=== PATIENT | female | born 1975 | race Caucasian/White ===

== ENCOUNTER 2022-11-08 08:06 | Emergency (ER) | payer MEDICAID, OTHER ==
[2022-11-08 08:16] VITALS: BP 120/74
[2022-11-08 08:59] LABS: Urine Bacteria NONE SEEN /hpf (None Seen); Urine Blood 2+ /uL (Negative); Urine Mucus FEW (None Seen); Urine Specific Gravity 1.029 (1.001-1.035); Urine WBC 2 /hpf (0 - 5)
[2022-11-08 09:27] LABS: Basophils # (auto) 0 10 ^3/uL (0-0.2); Basophils % (auto) 0.2 % (0.0-2.0); Eosinophils # (auto) 0 10 ^3/uL (0-0.8); Hemoglobin 15.6 g/dL (12.2-16.2); Monocytes # (auto) 0.6 10 ^3/uL (0-1.3); White Blood Cell 9.2 10^3/uL (4.4-10.8)
[2022-11-08 09:35] LABS: Eosinophils % (auto) 0.5 % (0.0-7.0); Hematocrit 45.5 % (36.0-46.0); Lymphocytes # (auto) 1.2 10 ^3/uL (0.4-5.4); Lymphocytes % (auto) 13.3 % (10.0-50.0); Mean Corpuscular Hemoglobin 33.5 pg (28.0-32.0); Mean Corpuscular Hgb Conc. 34.2 g/dL (32.0-36.0); Mean Corpuscular Volume 97.8 fL (80.0-100.0); Monocytes % (auto) 6.4 % (0.0-12.0); Neutrophils # (auto) 7.4 10 ^3/uL (1.6-8.6); Neutrophils % (auto) 79.6 % (37.0-80.0); Nucleated Red Blood Cells % 0.1 %; Red Blood Cells 4.66 10^6/uL (4.0-5.20); Red Cell Distribution Width 13.6 % (11.8-14.3)
[2022-11-08 09:53] LABS: BUN/Creatinine Ratio 11.2 (10.0-20.0); Calcium 8.5 mg/dL (8.5-10.1); Potassium 3.9 mmol/L (3.5-5.1)
[2022-11-08] MEDS ORDERED: KETOROLAC TROMETH 60MG/2ML VIAL IM ONE (10:00)
[2022-11-08] MEDS ORDERED: TAM04C PO (10:28)
[2022-11-08] MEDS ORDERED: CIPR-173 PO (10:28)
[2022-11-08] MEDS ORDERED: IBUP800T27 PO (10:28)
[2022-11-08] MEDS ORDERED: ONDA-144 PO (10:28)
== END 2022-11-08 10:46 | disposition home or self-care (01) ==
LOC: ER 08:06
DX: N39.0 Urinary tract infection, site not specified (principal); N20.0 Calculus of kidney
CPT/HCPCS: 36415; 74176; 80048; 81001; 81025; 85025; 87086; 96372; 99285; J1885